=== PATIENT | female | born 1955 | race Asian ===

== ENCOUNTER 2017-08-04 18:54 | Emergency (ER) | payer OTHER ==
[~2017-08-04] VITALS: Ht 172.7 cm; Wt 97.4 kg
[~2017-08-04 18:54] MED LIST: INSU100C SQ-INSULIN; LEVO100T5 PO; METF500T27 PO; NPH,100V SQ-INSULIN; PRED20TA PO; RIVA15TA PO; SIMV10TA3 PO
[2017-08-04 19:22] LABS: BASOPHILS # (AUTO) 0.09 x10^3/uL (0-0.1); BASOPHILS % (AUTO) 1 % (0-1); EOSINOPHILS # (AUTO) 0.26 x10^3/uL (0-0.4); EOSINOPHILS % (AUTO) 3 % (1-7); LYMPHOCYTES # (AUTO) 3.24 x10^3/uL (1-3.4); LYMPHOCYTES % (AUTO) 31 % (22-44); MD NO; MEAN CORPUSCULAR HEMOGLOBIN 24.3 pg (27.0-34.8); MEAN CORPUSCULAR HGB CONC 31.5 g/dL (32.4-35.8); MEAN CORPUSCULAR VOLUME 77.4 fL (80-100); MEAN PLATELET VOLUME 8.2 fL (7.4-10.4); MONOCYTES # (AUTO) 0.63 x10^3/uL (0.2-0.8); MONOCYTES % (AUTO) 6 % (2-9); NEUTROPHILS # (AUTO) 6.38 x10^3/uL (1.8-6.8); NEUTROPHILS % (AUTO) 60 % (42-75); PLATELET COUNT 360 x10^3/uL (130-400); RED BLOOD COUNT 5.66 x10^6/uL (3.82-5.3); RED CELL DISTRIBUTION WIDTH 13.9 % (9.6-15.2)
[2017-08-04 19:33] LABS: ALANINE AMINOTRANSFERASE 35 U/L (12-78); ALBUMIN 3.4 g/dL (3.4-5.0); ANION GAP 7 mmol/L (5-15); CALCIUM 8.8 mg/dL (8.5-10.1); CHLORIDE 102 mmol/L (98-107); CREATININE 0.89 mg/dL (0.55-1.02)
[2017-08-04 19:35] LABS: ALKALINE PHOSPHATASE 156 U/L (45-117); BILIRUBIN,TOTAL 0.6 mg/dL (0.2-1.0); TOTAL PROTEIN 8.1 g/dL (6.4-8.2)
[2017-08-04] MEDS ORDERED: MAGNESIUM CITRATE 300ML ORAL SOL PO ONE (20:00)
[2017-08-04] MEDS ORDERED: METHYLNALTREXONE 12 MG/0.6 ML SQ ONE (20:00)
[2017-08-04] MEDS ORDERED: MAGNESIUM CITRATE 300ML ORAL SOL ONE (20:14)
[2017-08-04 20:51] VITALS: BP 132/82
[2017-08-04 20:52] LABS: MICROSCOPIC AUTO
[2017-08-04 20:53] LABS: CULTURE INDICATED? YES
== END 2017-08-04 22:02 | disposition home or self-care (01) ==
LOC: ED 20:37
DX: K59.00 Constipation, unspecified (principal); I10 Essential (primary) hypertension; E11.9 Type 2 diabetes mellitus without complications; E78.5 Hyperlipidemia, unspecified; Z86.711 Personal history of pulmonary embolism; Z88.8 Allergy status to other drugs, medicaments and biological substances
CPT/HCPCS: 36415; 74021; 80053; 81001; 83690; 85025; 87086; 96372; 99285

== ENCOUNTER 2018-06-17 13:04 | Emergency (ER) | payer OTHER ==
[~2018-06-17] VITALS: Ht 172.7 cm; Wt 100.3 kg
[2018-06-17 13:12] VITALS: BP 109/74
[2018-06-17] MEDS ORDERED: CEFTRIAXONE 1,000 MG IM ONE (13:30)
[2018-06-17] MEDS ORDERED: LIDOCAINE-MPF 1%, 5ML ONE (13:48)
[2018-06-17] MEDS ORDERED: CEFTRIAXONE 1,000 MG ONE (13:48)
== END 2018-06-17 14:17 | disposition home or self-care (01) ==
LOC: ED 14:07
DX: L03.116 Cellulitis of left lower limb (principal); E11.65 Type 2 diabetes mellitus with hyperglycemia; I10 Essential (primary) hypertension; E78.5 Hyperlipidemia, unspecified
CPT/HCPCS: 73630; 82962; 96372; 99283; J0696

== ENCOUNTER → 2018-10-07 | Outpatient (CLI) | payer OTHER | END | disposition home or self-care (01) | LOC: CFH 08:08 | PROVIDERS: ATTEND Family Medicine | DX: N64.4 Mastodynia (principal) | CPT/HCPCS: 76641; 77066; G0279 ==